=== PATIENT | male | born 1985 | race Caucasian/White ===

== ENCOUNTER 2018-02-17 05:50 | Emergency (ER) | payer OTHER ==
[~2018-02-17] VITALS: Ht 182.9 cm; Wt 69.6 kg
[2018-02-17] MEDS ORDERED: TEGRETOL200 MG PO ×2 (05:56)
[2018-02-17] MEDS ORDERED: EXCEDRIN MIGRA1 EAC3 PO (05:57)
[2018-02-17] MEDS ORDERED: BACLOFEN20 MG PO (05:57)
[2018-02-17] MEDS ORDERED: KEFLEX500 MG PO (07:37)
[2018-02-17 08:33] VITALS: BP 125/78
== END 2018-02-17 08:39 ==
LOC: EME 05:50 → EDBD 05:50 → EME 05:50
PROC: 3E0234Z Introduction of Serum, Toxoid and Vaccine into Muscle, Percutaneous Approach (ICD-10-PCS; principal; 2018-02-17)
DX: S00.03XA Contusion of scalp, initial encounter (principal); S09.90XA Unspecified injury of head, initial encounter; Z23 Encounter for immunization; W18.11XA Fall from or off toilet without subsequent striking against object, initial encounter; Y92.143 Cell of prison as the place of occurrence of the external cause; R11.0 Nausea; Z87.891 Personal history of nicotine dependence; Z79.82 Long term (current) use of aspirin
CPT/HCPCS: 70450; 72125; 99281; 99285